=== PATIENT | male | born 1955 | race Caucasian/White ===

== ENCOUNTER → 2017-10-02 | Outpatient (CLI) | payer OTHER ==
[~2017-10-02] MED LIST: CIALIS2.5 MG; FINASTERIDE5 MG PO; FLOMAX0.4 MG PO; LIPITOR40 MG PO; NAPROSYN500 MG PO; PREVACID30 MG PO
== END | disposition home or self-care (01) ==
LOC: CDC 10:22
DX: Z01.810 Encounter for preprocedural cardiovascular examination (principal); M25.511 Pain in right shoulder; M75.41 Impingement syndrome of right shoulder; M75.121 Complete rotator cuff tear or rupture of right shoulder, not specified as traumatic; I45.10 Unspecified right bundle-branch block
CPT/HCPCS: 93000